=== PATIENT | male | born 1985 | race Caucasian/White ===

== ENCOUNTER 2019-06-21 07:30 | Emergency (ER) | payer BC, OTHER ==
[~2019-06-21] VITALS: Ht 175.3 cm; Wt 83.9 kg
[2019-06-21 08:05] VITALS: BP 142/87
[2019-06-21] MEDS: KETOROLAC TROMETH 60MG/2ML VIAL IM ONE (08:50)
== END 2019-06-21 09:04 | disposition home or self-care (01) ==
LOC: ER 07:30
DX: S83.91XA Sprain of unspecified site of right knee, initial encounter (principal); M17.11 Unilateral primary osteoarthritis, right knee; X58.XXXA Exposure to other specified factors, initial encounter; Y93.89 Activity, other specified; Y92.89 Other specified places as the place of occurrence of the external cause; Y99.8 Other external cause status
CPT/HCPCS: 73562; 96372; 99283; J1885

== ENCOUNTER 2021-04-21 21:42 | Emergency (ER) | payer BC ==
[~2021-04-21] VITALS: Ht 175.3 cm; Wt 81.6 kg
[2021-04-21] MEDS ORDERED: fentaNYL CITRATE 100 MCG/2 ML VL IV ONE (22:30)
[2021-04-21] MEDS ORDERED: ONDANSETRON HCL 4 MG/2 ML VIAL IV ONE (22:30)
[2021-04-21 22:51] LABS: Basophils # (auto) 0.1 10 ^3/uL (0-0.2); Basophils % (auto) 0.7 % (0.0-2.0); Eosinophils # (auto) 0.1 10 ^3/uL (0-0.8); Eosinophils % (auto) 1.3 % (0.0-7.0); Hematocrit 40.6 % (41.0-53.0); Hemoglobin 13.9 g/dL (13.5-17.5); Lymphocytes # (auto) 2.6 10 ^3/uL (0.4-5.4); Lymphocytes % (auto) 33.3 % (10.0-50.0); Mean Corpuscular Hemoglobin 28.3 pg (28.0-32.0); Mean Corpuscular Hgb Conc. 34.2 g/dL (32.0-36.0); Mean Corpuscular Volume 82.9 fL (80.0-100.0); Monocytes # (auto) 0.3 10 ^3/uL (0-1.3); Monocytes % (auto) 4.3 % (0.0-12.0); Neutrophils # (auto) 4.8 10 ^3/uL (1.6-8.6); Neutrophils % (auto) 60.4 % (37.0-80.0); Red Cell Distribution Width 12.9 % (11.8-14.3); White Blood Cell 7.9 10^3/uL (4.4-10.8)
[2021-04-21 23:08] LABS: Albumin 3.6 g/dL (3.4-5.0); Calcium 8.7 mg/dL (8.5-10.1); Potassium 4.1 mmol/L (3.5-5.1)
[2021-04-21 23:11] LABS: BUN/Creatinine Ratio 22.8; Bilirubin, Total 0.4 mg/dL (0.2-1.0); CRP High Sensitivity 0.3 mg/dL (< 0.3); Total Protein 7.1 g/dL (6.4-8.2)
[2021-04-21] MEDS ORDERED: IOHEXOL 350 MG/ML 100ML IJ ONE (23:30)
[2021-04-22 01:00] VITALS: BP 118/79
[2021-04-22 01:06] LABS: INR 1.09 (0.9-1.15)
== END 2021-04-22 02:08 | disposition home or self-care (01) ==
LOC: ER 21:43
DX: G89.18 Other acute postprocedural pain (principal); M79.604 Pain in right leg; F17.290 Nicotine dependence, other tobacco product, uncomplicated; Z20.822 Contact with and (suspected) exposure to COVID-19
CPT/HCPCS: 36415; 71045; 73590; 73701; 80053; 83605; 85025; 85610; 85652; 86141; 87040; 87426; 93971; 96374; 96375; 99285; J2405; J3010; Q9967

== ENCOUNTER 2021-08-28 18:58 | Emergency (ER) | payer BC ==
[~2021-08-28] VITALS: Ht 165.1 cm; Wt 90.7 kg
[2021-08-29] MEDS ORDERED: IBUPROFEN 600 MG TAB PO ONE (02:00)
[2021-08-29 02:01] VITALS: BP 115/63
[2021-08-29] MEDS ORDERED: IBUP600T27 PO (03:53)
[2021-08-29] MEDS ORDERED: HYDR1TAB97 PO (03:53)
== END 2021-08-29 03:00 | disposition home or self-care (01) ==
LOC: ER 19:00
DX: M54.59 Other low back pain (principal)
CPT/HCPCS: 72100

== ENCOUNTER 2021-11-02 17:55 | Inpatient (IN) | payer BC ==
[~2021-11-02] VITALS: Ht 175.3 cm; Wt 92.9 kg
[~2021-11-02 17:55] MED LIST: HYDR1TAB97 PO; IBUP600T27 PO
[2021-11-02 18:34] LABS: Basophils # (auto) 0.1 10 ^3/uL (0-0.2); Basophils % (auto) 0.8 % (0.0-2.0); Eosinophils # (auto) 0.1 10 ^3/uL (0-0.8); Eosinophils % (auto) 1.4 % (0.0-7.0); Hematocrit 43.6 % (41.0-53.0); Hemoglobin 14.9 g/dL (13.5-17.5); Lymphocytes # (auto) 2.6 10 ^3/uL (0.4-5.4); Lymphocytes % (auto) 27.6 % (10.0-50.0); Mean Corpuscular Hemoglobin 28.1 pg (28.0-32.0); Mean Corpuscular Hgb Conc. 34.2 g/dL (32.0-36.0); Mean Corpuscular Volume 82.3 fL (80.0-100.0); Monocytes # (auto) 0.5 10 ^3/uL (0-1.3); Monocytes % (auto) 5.2 % (0.0-12.0); Nucleated Red Blood Cells % 0.1 %; Red Blood Cells 5.29 10^6/uL (4.5-5.90); Red Cell Distribution Width 17.8 % (11.8-14.3); White Blood Cell 9.3 10^3/uL (4.4-10.8)
[2021-11-02] MEDS: SUCRALFATE 1 GM/10 ML ORAL SUSP PO SCH ×3 (18:45→22:45)
[2021-11-02 18:54] LABS: Albumin 3.6 g/dL (3.4-5.0); Calcium 8.7 mg/dL (8.5-10.1); Magnesium 2.6 mg/dL (1.6-2.6); Potassium 4.1 mmol/L (3.5-5.1)
[2021-11-02 18:57] LABS: BUN/Creatinine Ratio 8.1; Bilirubin, Total 6.4 mg/dL (0.2-1.0); Total Protein 7.9 g/dL (6.4-8.2)
[2021-11-02 19:21] LABS: INR 0.92 (0.9-1.15)
[2021-11-02] MEDS ORDERED: LACTATED RINGER'S 1,000 ML IV ONE (19:30)
[2021-11-02 21:33] LABS: Urine Bacteria NONE SEEN /hpf (None Seen); Urine Blood TRACE /uL (Negative); Urine Mucus FEW (None Seen); Urine Specific Gravity 1.028 (1.001-1.035); Urine WBC 1 /hpf (0 - 3)
[2021-11-02] MEDS ORDERED: ONDANSETRON HCL 4 MG/2 ML VIAL IV PRN (22:00)
[2021-11-02] MEDS: PANTOPRAZOLE 40 MG/10 ML VIAL INJ IV SCH (22:45)
[2021-11-02] MEDS ORDERED: TEMAZEPAM 15 MG CAP PO ONE (23:00)
[2021-11-03] MEDS: D5W/SOD CHLO 0.9% 1,000 ML IV SCH ×3 (01:02→17:31)
[2021-11-03 01:28] VITALS: BP 136/67
[2021-11-03 05:00] VITALS: BP 113/58
[2021-11-03] MEDS: SUCRALFATE 1 GM/10 ML ORAL SUSP PO SCH ×4 (06:04→21:31)
[2021-11-03 06:14] LABS: Basophils # (auto) 0.2 10 ^3/uL (0-0.2); Eosinophils # (auto) 0.1 10 ^3/uL (0-0.8); Eosinophils % (auto) 1.7 % (0.0-7.0); Hematocrit 40.4 % (41.0-53.0); Hemoglobin 13.9 g/dL (13.5-17.5); Lymphocytes # (auto) 2.7 10 ^3/uL (0.4-5.4); Lymphocytes % (auto) 35.7 % (10.0-50.0); Mean Corpuscular Hemoglobin 28.3 pg (28.0-32.0); Mean Corpuscular Hgb Conc. 34.5 g/dL (32.0-36.0); Monocytes # (auto) 0.4 10 ^3/uL (0-1.3); Monocytes % (auto) 5.7 % (0.0-12.0); Neutrophils # (auto) 4.2 10 ^3/uL (1.6-8.6); Neutrophils % (auto) 54.9 % (37.0-80.0); Nucleated Red Blood Cells % 0.1 %; Red Blood Cells 4.92 10^6/uL (4.5-5.90); Red Cell Distribution Width 17.7 % (11.8-14.3); White Blood Cell 7.6 10^3/uL (4.4-10.8)
[2021-11-03 06:32] LABS: Calcium 7.9 mg/dL (8.5-10.1); Potassium 3.8 mmol/L (3.5-5.1)
[2021-11-03 06:37] LABS: BUN/Creatinine Ratio 11.9; Bilirubin, Total 5.1 mg/dL (0.2-1.0); Total Protein 6.6 g/dL (6.4-8.2)
[2021-11-03] MEDS: PANTOPRAZOLE 40 MG/10 ML VIAL INJ IV SCH (08:39)
[2021-11-03 09:00] VITALS: BP 103/56
[2021-11-03] MEDS: HYDROmorphone HCL 2 MG/ML VL/or syr IV PRN ×3 (09:58→21:31)
[2021-11-03 12:21] LABS: Magnesium 2.5 mg/dL (1.6-2.6)
[2021-11-03 13:00] VITALS: BP 126/67
[2021-11-03] MEDS ORDERED: fentaNYL CITRATE 100 MCG/2 ML VL ONE (14:42)
[2021-11-03] MEDS ORDERED: MIDAZOLAM HCL 2MG/2ML 2ml VIAL (1mg/ml) ONE (14:42)
[2021-11-03] MEDS ORDERED: PROPOFOL 10 MG/ML 20 ML IV ONE (15:09)
[2021-11-03] MEDS ORDERED: LIDOCAINE 2% (LOCAL ANESTH.) PF 5ml SDV ONE (15:09)
[2021-11-03] MEDS ORDERED: ONDANSETRON HCL 4 MG/2 ML VIAL IV PRN (15:30)
[2021-11-03 16:54] VITALS: BP 119/67
[2021-11-03] MEDS: PANTOPRAZOLE 40 MG TAB PO SCH (21:31)
[2021-11-03 22:00] VITALS: BP 128/79
[2021-11-04 05:00] VITALS: BP 119/71
[2021-11-04 05:50] LABS: Albumin 2.9 g/dL (3.4-5.0); Calcium 7.8 mg/dL (8.5-10.1); Potassium 4.3 mmol/L (3.5-5.1)
[2021-11-04 05:53] LABS: Bilirubin, Direct 4.6 mg/dL (0-0.2); Bilirubin, Total 5.4 mg/dL (0.2-1.0); Total Protein 6.5 g/dL (6.4-8.2)
[2021-11-04] MEDS: HYDROmorphone HCL 2 MG/ML VL/or syr IV PRN ×3 (06:12→12:54)
[2021-11-04] MEDS: SUCRALFATE 1 GM/10 ML ORAL SUSP PO SCH ×2 (06:12→09:24)
[2021-11-04] MEDS: D5W/SOD CHLO 0.9% 1,000 ML IV SCH (06:12)
[2021-11-04 09:01] VITALS: BP 153/81
[2021-11-04] MEDS: PANTOPRAZOLE 40 MG TAB PO SCH (09:23)
[2021-11-04] MEDS ORDERED: SUCR1SUS10 PO (10:57)
[2021-11-04] MEDS ORDERED: PANT40TA2 PO (10:57)
[2021-11-04] MEDS ORDERED: ERGO1CAP23 PO (10:59)
[2021-11-04 12:27] VITALS: BP 153/81
[2021-11-04 13:24] VITALS: BP 148/82
[2021-11-05 09:18] LABS: Hepatitis B Surface Antibody Positive (Negative)
[2021-11-05 11:45] LABS: Hepatitis B Core IgM Negative
[2021-11-05 12:10] LABS: Hepatitis C Antibody Positive (Negative)
== END 2021-11-04 12:52 | disposition home or self-care (01) | DRG 368 ==
LOC: ER 17:55 → OVERFLOW 21:55 → EAST 23:34
PROVIDERS: ADMIT Nurse Practitioner; ATTEND Internal Medicine
PROC: 0DB68ZX Excision of Stomach, Via Natural or Artificial Opening Endoscopic, Diagnostic (ICD-10-PCS; principal; 2021-11-03 14:39)
DX: K21.01 Gastro-esophageal reflux disease with esophagitis, with bleeding (principal); N17.0 Acute kidney failure with tubular necrosis; K29.71 Gastritis, unspecified, with bleeding; K72.90 Hepatic failure, unspecified without coma; B19.20 Unspecified viral hepatitis C without hepatic coma; E55.9 Vitamin D deficiency, unspecified; F17.210 Nicotine dependence, cigarettes, uncomplicated; K44.9 Diaphragmatic hernia without obstruction or gangrene; Z96.659 Presence of unspecified artificial knee joint; Z20.822 Contact with and (suspected) exposure to COVID-19
CPT/HCPCS: 36415; 71046; 76705; 80053; 80061; 81001; 82140; 82248; 82306; 83036; 83690; 83735; 84443; 85025; 85384; 85610; 85730; 86703; 86704; 86705; 86706; 86803; 86850; 86900; 86901; 87340; 93005; 96361; 96374; 96375; C9113; G0378; J2001; J2250; J2405; J2704; J7042

== ENCOUNTER → 2022-01-06 | Outpatient (CLI) | payer BC ==
[~2022-01-06] MED LIST changes: +ERGO1CAP23 PO; -HYDR1TAB97 PO; -IBUP600T27 PO; +PANT40TA2 PO; +SUCR1SUS10 PO
[2022-01-06 10:49] LABS: Basophils # (auto) 0.1 10 ^3/uL (0-0.2); Basophils % (auto) 0.9 % (0.0-2.0); Eosinophils # (auto) 0.1 10 ^3/uL (0-0.8); Eosinophils % (auto) 0.8 % (0.0-7.0); Hematocrit 46.6 % (41.0-53.0); Hemoglobin 16.1 g/dL (13.5-17.5); Lymphocytes # (auto) 2.9 10 ^3/uL (0.4-5.4); Lymphocytes % (auto) 31.9 % (10.0-50.0); Mean Corpuscular Hemoglobin 29.8 pg (28.0-32.0); Mean Corpuscular Hgb Conc. 34.6 g/dL (32.0-36.0); Mean Corpuscular Volume 86.3 fL (80.0-100.0); Monocytes # (auto) 0.3 10 ^3/uL (0-1.3); Monocytes % (auto) 3.4 % (0.0-12.0); Neutrophils # (auto) 5.8 10 ^3/uL (1.6-8.6); Nucleated Red Blood Cells % 0.1 %; Red Cell Distribution Width 14.4 % (11.8-14.3); White Blood Cell 9.2 10^3/uL (4.4-10.8)
[2022-01-06 11:11] LABS: Albumin 4.1 g/dL (3.4-5.0); Calcium 8.9 mg/dL (8.5-10.1); Potassium 4.3 mmol/L (3.5-5.1)
[2022-01-06 11:15] LABS: BUN/Creatinine Ratio 13.9; Bilirubin, Total 0.6 mg/dL (0.2-1.0); Total Protein 7.4 g/dL (6.4-8.2)
== END | disposition home or self-care (01) ==
LOC: LAB 10:32
PROVIDERS: ATTEND Nurse Practitioner Family
DX: R79.89 Other specified abnormal findings of blood chemistry (principal)
CPT/HCPCS: 36415; 80053; 84403; 85025

== ENCOUNTER 2023-03-13 02:16 | Emergency (ER) | payer BC ==
[~2023-03-13] VITALS: Ht 175.3 cm; Wt 90.0 kg
[~2023-03-13 02:16] MED LIST changes: -SUCR1SUS10 PO; +SUCR1SUS26 PO
[2023-03-13 02:30] VITALS: PULSE 86; RESP 19; O2SAT 94
[2023-03-13] MEDS ORDERED: KETOROLAC TROMETH 30 MG/ML 1ML VIAL IV ONE (02:45)
[2023-03-13] MEDS ORDERED: MORPHINE SULFATE 4 MG/ML SYR/VIAL IV ONE ×2 (02:45→06:45)
[2023-03-13] MEDS ORDERED: ONDANSETRON HCL 4 MG/2 ML VIAL IV ONE (02:45)
[2023-03-13] MEDS ORDERED: HYDR-4902 PO (06:51)
[2023-03-13] MEDS ORDERED: NAPR-1334 PO (06:51)
[2023-03-13] MEDS ORDERED: ZOFR4T PO (06:51)
[2023-03-13 08:16] VITALS: TEMP 98.1; O2SAT 98
[2023-03-13 08:21] VITALS: BP 130/73; PULSE 73; RESP 20
== END 2023-03-13 08:48 | disposition home or self-care (01) ==
LOC: EDBD 02:16 → ER 02:16
DX: S83.91XA Sprain of unspecified site of right knee, initial encounter (principal); M25.561 Pain in right knee; M23.91 Unspecified internal derangement of right knee; K21.9 Gastro-esophageal reflux disease without esophagitis; F17.210 Nicotine dependence, cigarettes, uncomplicated; Z79.899 Other long term (current) drug therapy; Z98.890 Other specified postprocedural states; X58.XXXA Exposure to other specified factors, initial encounter; Y93.89 Activity, other specified; Y92.89 Other specified places as the place of occurrence of the external cause; Y99.8 Other external cause status
CPT/HCPCS: 29505; 73700; 96374; 96375; 96376; 99285; J1885; J2270; J2405

== ENCOUNTER → 2023-05-23 | Outpatient (CLI) | payer BC ==
[~2023-05-23] MED LIST changes: +HYDR-4902 PO; +NAPR-1334 PO; +ZOFR4T PO
[2023-05-23 14:44] LABS: Erythrocyte Sedimentation Rate 2 mm/hr (0-20)
== END | disposition home or self-care (01) ==
LOC: LAB 12:34
PROVIDERS: ATTEND Orthopaedic Surgery Adult Reconstructive Orthopaedic Surgery
DX: M17.11 Unilateral primary osteoarthritis, right knee (principal); M25.569 Pain in unspecified knee
CPT/HCPCS: 36415; 85652; 86141

== ENCOUNTER → 2023-07-25 | Outpatient (CLI) | payer BC ==
[2023-07-25 17:24] LABS: Amphetamine Screen, Urine Neg (NEGATIVE)
[2023-07-25 17:25] LABS: Barbiturate Scree,Urine Neg (NEGATIVE); Benzodiazephine Screen, Urine Neg (NEGATIVE); Cannabinoid Screen, Urine Neg (NEGATIVE); Cocaine Screen, Urine Neg (NEGATIVE); Opiate Scree,Urine Neg (NEGATIVE); Phencyclidine Screen, Urine Neg (NEGATIVE)
== END | disposition home or self-care (01) ==
LOC: LAB 16:03
PROVIDERS: ATTEND Orthopaedic Surgery Adult Reconstructive Orthopaedic Surgery
DX: G89.4 Chronic pain syndrome (principal); Z79.891 Long term (current) use of opiate analgesic
CPT/HCPCS: 80307

== ENCOUNTER → 2023-08-23 | Outpatient (CLI) | payer BC ==
[2023-08-23 12:50] LABS: Basophils # (auto) 0.1 10 ^3/uL (0-0.2); Basophils % (auto) 0.8 % (0.0-2.0); Eosinophils # (auto) 0.2 10 ^3/uL (0-0.8); Eosinophils % (auto) 2.1 % (0.0-7.0); Hematocrit 45.9 % (41.0-53.0); Hemoglobin 15.5 g/dL (13.5-17.5); Lymphocytes # (auto) 3.4 10 ^3/uL (0.4-5.4); Lymphocytes % (auto) 47.1 % (10.0-50.0); Mean Corpuscular Hemoglobin 29.1 pg (28.0-32.0); Mean Corpuscular Hgb Conc. 33.7 g/dL (32.0-36.0); Mean Corpuscular Volume 86.1 fL (80.0-100.0); Monocytes # (auto) 0.3 10 ^3/uL (0-1.3); Monocytes % (auto) 3.8 % (0.0-12.0); Neutrophils # (auto) 3.3 10 ^3/uL (1.6-8.6); Neutrophils % (auto) 46.2 % (37.0-80.0); Nucleated Red Blood Cells % 0.1 %; Red Blood Cells 5.33 10^6/uL (4.5-5.90); White Blood Cell 7.2 10^3/uL (4.4-10.8)
[2023-08-23 12:59] LABS: Urine Bacteria NONE SEEN /hpf (None Seen); Urine Blood 1+ /uL (Negative); Urine Clarity Clear (Clear); Urine Color Yellow (Yellow); Urine Protein, UAD TRACE (Negative); Urine Specific Gravity 1.027 (1.001-1.035); Urine Urobilinogen Normal (Negative); Urine WBC 1 /hpf (0 - 3)
[2023-08-23 13:01] LABS: INR 1.01 (0.9-1.15); Partial Thromboplastin Time 28.5 SEC (24.5-34.5); Prothrombin Time 10.6 sec (9.3-11.8)
[2023-08-23 13:17] LABS: Alanine Aminotransferase 17 U/L (7-40); Alkaline Phosphatase 83 U/L (46-116); Calcium 9.7 mg/dL (8.5-10.1); Carbon Dioxide 28 mmol/L (20-30); Chloride 105 mmol/L (98-107)
[2023-08-23 13:18] LABS: Albumin 4.8 g/dL (3.2-4.8); Anion Gap 7 (5-15); Aspartate Aminotransferase 18 U/L (13-40); BUN/Creatinine Ratio 15.5 (10.0-20.0); Bilirubin, Total 0.6 mg/dL (0.2-1.0); Blood Urea Nitrogen 13 mg/dL (9-23); CRP High Sensitivity 0.26 mg/dL (<1.0); Glucose 96 mg/dL (74-106); Potassium 4.5 mmol/L (3.5-5.1); Sodium 140 mmol/L (136-145)
[2023-08-23 13:22] LABS: Erythrocyte Sedimentation Rate 4 mm/hr (0-20)
== END | disposition home or self-care (01) ==
LOC: LAB 12:27
PROVIDERS: ATTEND Orthopaedic Surgery Hand Surgery
DX: Z01.812 Encounter for preprocedural laboratory examination (principal); M17.10 Unilateral primary osteoarthritis, unspecified knee
CPT/HCPCS: 36415; 80053; 81001; 83036; 85025; 85610; 85652; 85730; 86141